=== PATIENT | female | born 1995 | race Caucasian/White ===

== ENCOUNTER 2021-06-01 15:12 | Outpatient (CLI) | payer OTHER, SELFPAY ==
[~2021-06-01] VITALS: Ht 162.6 cm; Wt 87.5 kg
[2021-06-01 15:39] VITALS: BP 131/67
[2021-06-01 15:58] VITALS: BP 123/80
[2021-06-01] MEDS ORDERED: ACET-907 PO (16:01)
[2021-06-01 16:09] VITALS: BP 123/75
[2021-06-01] MEDS ORDERED: HOME MED LIST COMPLETE! XX SCH (16:20)
[2021-06-01 16:27] LABS: ALT/SGPT 14 U/L (12-78); BILIRUBIN,TOTAL 0.2 MG/DL (0.2-1.0); CREATININE FOR GFR 0.55 MG/DL (0.55-1.30); GLOMERULAR FILTRATION RATE > 60.0 (>60); LDH LACTATE DEHYDROGENASE 172 U/L (84-246); URIC ACID 3.9 MG/DL (2.6-6.0)
[2021-06-01 16:41] LABS: HEMATOCRIT 36.1 % (36.0-47.0); HEMOGLOBIN 11.3 g/dl (12.0-15.5); MEAN CORPUSCULAR HEMOGLOBIN 25.7 pg (27.0-33.0); MEAN CORPUSCULAR HGB CONC 31.3 g/dl (32.0-36.5); MEAN CORPUSCULAR VOLUME 82.2 fl (80.0-96.0); PLATELET COUNT, AUTOMATED 159 10^3/uL (150-450); RED BLOOD COUNT 4.39 10^6/uL (4.00-5.40)
[2021-06-01 16:51] LABS: TOTAL PROTEIN,RANDOM URINE 7.8 MG/DL (0.0-12.0)
--- NOTE | 2021-06-01 16:57 | IPNPDOC ---
Text Note Date of Service The patient was seen on 06/01/21. NOTE Chief Complaint: Ms. Wellington is a 25 year old at 37+2 weeks gestation sent to L&D triage from clinic after elevated blood pressure at routine OB appointment. Patient presents: alone HPI: Reports swelling to feet and hands, dizziness occurring yesterday with intermittent spots in vision while out running errands. Intermittent frontal/left headache that is relieved with tylenol. Denies nausea, vomiting, abdominal pain. ROS: Denies any leaking of fluid, vaginal bleeding. Reporting good movement. Denies any contractions. Denies any dysuria, vaginal discharge, vaginal itching/burning. Some Fatigue. Recently arrived from [facility]. Objective: VS: 1539: BP 131/67 P96 RR18 T97.8 1558: BP 123/80 P98 1609: Bp 123/75 P93 General: Alert. Well-appearing, in no acute distress PSYCH: Well groomed. Appropriate affect, normal mood. Conversed easily. Neuro: Oriented to time, place, and person. RESP: Lungs clear to auscultation bilaterally without wheezes, rales or rhonchi. Unlabored breathing. CV: Normal RRR, no murmur, c/w normal . Minimal non-pitting edema to bilateral feet and hands. ABD: Soft, non-tender. BS normal x4 quad. MSK: Normal mvmt all extremities. Steady gait. Tamera from a seated position without assistance. Obstetrical: FHR: Baseline 145 with moderate variability. Accelerations present, no decelerations. No contractions noted. VTX by Leopolds Uterus: Not tender. Fundal Height 36cm. Laboratory Tests 06/01/21 15:51: White Blood Count 8.0, Red Blood Count 4.39, Hemoglobin 11.3L, Hematocrit 36.1, Mean Corpuscular Volume 82.2, Mean Corpuscular Hemoglobin 25.7L, Mean Corpuscular Hemoglobin Concent 31.3L, Red Cell Distribution Width 15.3H, Platelet Count 159, Nucleated Red Blood Cells % (auto) 0.0 06/01/21 15:56: Creatinine 0.55, Glomerular Filtration Rate > 60.0, Uric Acid 3.9, Total Bili mcdaniel 0.2, Aspartate Amino Transf (AST/SGOT) 11, Alanine Aminotransferase (ALT/SGPT) 14, Lactate Dehydrogenase 172 06/01/21 16:13: Urine Random Creatinine 52.0, Urine Random Total Protein 7.8 A/P 25yo at 37+2 wks gestation evaluated in L&D triage for elevated blood pressure in clinic. Benign physical exam Reactive NST, reassuring Labs: normal H/H, platelets, & LFT. P:C ratio 0.15 Elevated blood pressure without diagnosis of hypertension: VSS and normal. Single elevated blood pressure in clinic. Plan: Pt to return to clinic for walk in blood pressure check on Sunday (patient unable to come to clinic on ). Reviewed warning signs of pre-e and to return/call sooner if they occur. Follow up in clinic for next BARAK in 1 week. VS,Fishbone, I+O VS, Fishbone, I+O Vital Signs Date Time Temp Pulse Resp B/P (MAP) Pulse Ox O2 Delivery O2 Flow Rate FiO2 06/01/21 15:58 98 18 123/80 (94) 06/01/21 15:39 97.8 97 ERINN DUFF CNM Jun 01, 2021 16:30
== END 2021-06-01 16:57 | disposition home or self-care (01) ==
LOC: M LDO 15:12
PROVIDERS: ATTEND Advanced Practice Midwife
DX: O26.893 Other specified pregnancy related conditions, third trimester (principal); Z3A.37 37 weeks gestation of pregnancy; R03.0 Elevated blood-pressure reading, without diagnosis of hypertension; Z88.1 Allergy status to other antibiotic agents; Z88.8 Allergy status to other drugs, medicaments and biological substances; Z91.040 Latex allergy status
CPT/HCPCS: 36415; 59025; 82247; 82565; 82570; 83615; 84156; 84450; 84460; 84550; 85027; G0378; G0463

== ENCOUNTER 2021-06-14 20:36 | Inpatient (IN) | payer OTHER, SELFPAY ==
[~2021-06-14] VITALS: Ht 157.5 cm; Wt 89.0 kg
[~2021-06-14 20:36] MED LIST: ACET-907 PO
[2021-06-14 21:33] VITALS: BP 121/75
[2021-06-14] MEDS ORDERED: LACTATED RINGER'S 1000 ML IV ONE (22:30)
[2021-06-14] MEDS ORDERED: OXYTOCIN INJ 10 UNITS/ML VIAL (J2590) IV PRN (22:30)
[2021-06-14] MEDS ORDERED: METHYLERGONOVINE MALEATE 0.2 MG/ML VIAL (J2210) IM PRN (22:30)
[2021-06-14] MEDS ORDERED: miSOPROStol 50MCG 1/2 TABLET PO ONE (22:30)
[2021-06-14] MEDS ORDERED: OXYTOCIN DRIP 30 UNITS in IV 1 EA IV PRN (22:30)
[2021-06-14] MEDS ORDERED: OXYTOCIN 30 UNITS IN 0.9% NaCl 500ML IV BAG (J2590) As Ordered ONE (23:08)
[2021-06-14 23:10] LABS: HEMATOCRIT 34.2 % (36.0-47.0); HEMOGLOBIN 10.9 g/dl (12.0-15.5); MEAN CORPUSCULAR HEMOGLOBIN 25.9 pg (27.0-33.0); MEAN CORPUSCULAR HGB CONC 31.9 g/dl (32.0-36.5); MEAN CORPUSCULAR VOLUME 81.2 fl (80.0-96.0); PLATELET COUNT, AUTOMATED 154 10^3/uL (150-450); RED BLOOD COUNT 4.21 10^6/uL (4.00-5.40); WHITE BLOOD COUNT 7.8 10^3/uL (4.0-10.0)
--- NOTE | 2021-06-14 23:33 | HPEPDOC ---
Obstetrical History & Physical General Date of Admission Vital Signs Label Value Date Time Patient Temperature 98.3 degrees F 06/14/212132 Temperature Source Tympanic 06/14/212132 Pulse 100 06/14/212132 Respiratory Rate 18 bpm 06/14/212132 Blood Pressure Assessment 121/75 (90) 06/14/212132 Source Automatic Cuff (NIBP) Item Value Date Time White Blood Count 7.8 10^3/uL 06/14/212135 Red Blood Count 4.21 10^6/uL 06/14/212135 Hemoglobin 10.9 g/dl L 06/14/212135 Hematocrit 34.2 % L 06/14/212135 Mean Corpuscular Volume 81.2 fl 06/14/212135 Mean Corpuscular Hemoglobin 25.9 pg L 06/14/212135 Mean Corpuscular Hemoglobin Concent 31.9 g/dl L 06/14/212135 Red Cell Distribution Width 15.4 % H 06/14/212135 Platelet Count 154 10^3/uL 06/14/212135Jun 14, 2021 at 20:36 Primary Care Physician: Montana Wright MD History of Present Illness 25 YO AT 39 WEEKS FOR IOL PREVIOUS HISTORY PRE-E AND HAD PREVIOUS TOLAC Chief Complaint: Induction of labor Information Provided By: Patient Age: 25 : 3 Term: 2 Pre-term: 0 Abortions: 0 Livin Care Care: Good Care Number of Visits: 5 Dating Final EDC: Jun 20, 2021 Final EDC for Daily Update: Jun 20, 2021 Final EDC by: LMP LMP: Sep 13, 2020 1st Trimester Date: Nov 23, 2020 Weeks + Days: 9.3 Estimated Date of Confinement: Jun 20, 2021 EGA at Admission: 39 Antepartum Course Diagnos(e)s 39 WEEKS FOR IOL Height (inches): 64 Pre- weight (lbs.): 186 Admission Weight (lbs.): 195 Change in Weight (lbs.): 9 Past Medical History Past Obstetrical History #1: Past Obstetrical History: Multigravida Date of Delivery: January 22, 2018 Gestation: 37 Type of Delivery: Ceserean section Sex of : Male Weight of Infant (grams): 3146.7 Complications: Yes (PRE E NRFHT) Past Obstetrical History #2: Past Obstetrical History: Multigravida Date of Delivery: Oct 05, 2020 Gestation: 39 Type of Delivery: Spontaneous Vaginal Del. (TOLAC) Sex of : Male Weight of (grams): 3231.8 Complications: No BULKER History: Abnormal Pap, History of STD (CT POSITIVE 2015) Past Medical History Medical History PATIENT CLAIMS HISTORY HYPERTENSION UTI'S Surgical History: section (DIAGNOSTIC LAPAROSCOPY,RT HIP SURGERY,T AND A ), Diagnostic laparoscopy Family History Significant Family History: Lung disease (LUNG CANCER) Social History Social history NON SMOKER NO ETOH NO VAPING NO RECREATIONAL DRUGS NO VIOLENCE Marital Status: Family situation: Spouse/partner home Psychosocial History: Anxiety (PP DEPRESSION ) * Smoker: non-smoker Alcohol: Denies Drugs: denies Abuse Violence Screening Have you been hit/kicked/slapp: No Have you been sexually assault: No Imunizations Tdap status: current Influenza Status: needs Allergies Coded Allergies: cephalexin (Verified Allergy, Intermediate, Swelling/HIVES, 06/01/21) clindamycin (Verified Allergy, Intermediate, Swelling/HIVES, 06/01/21) dinoprostone (Verified Allergy, Intermediate, Swelling/HIVES, 06/01/21) latex (Verified Allergy, Intermediate, Swelling/HIVES, 06/01/21) omeprazole (Verified Allergy, Intermediate, Swelling/HIVES, 06/01/21) Medications Scheduled PRN Acetaminophen (Tylenol) 325 Mg Tablet, 1,000 MG PO Q6HP PRN for HEADACHE Physical Examination Physical Examination GENERAL: Alert and oriented times three. BREAST: . ABDOMEN: Gravid and non-tender to touch. FETUS: Is vertex (VTX) by sterile vaginal examination (SVE), fetus is vertex (VTX) by Sajan. HEART RATE: Regular rate and rhythm. LUNGS: Clear to auscultation (CTA). EXTREMITIES: No edema. No clonus. Deep tendon reflexes (DTRs) + . Other physical findings NORMOCEPHALIC ,ATRAUMATIC, NECK FULL RANGE MOTION, PERRLA, CHEST HRR DISTAL PULSES SYMMETRIC, LUNGS CTA NO WHEEZE,NO RHONCHI NO CVA TENDERNESS ABDOMEN SOFT SF HEIGHT APPROPRIATE VERTEX BOWEL SOUNDS NORMAL. NO RASHES LESIONS PRURITUS NO ARTHRALGIA MYALGIA, NO JOINT PAIN NO COUGH WHEEZE NO SOB OR [place], NO BRUISING NO BLEEDING NO INCONTINENCE URGENGY FREQUENCY Vital Signs/I&O Vital Signs Date Time Temp Pulse Resp B/P (MAP) Pulse Ox O2 Delivery O2 Flow Rate FiO2 06/14/21 21:33 98.3 100 18 121/75 (90) Room Air Laboratory Data 24H LABS Laboratory Tests 2 06/14/21 20:48: Serology Scanned Report Hepatitis B Testing Pertinent Laboratoy Data Blood Type: A- RBC Antibody Screen: Negative HIV: Negative Hepatitis B: Negative Rapid Plasma Reagin: Nonreactive Rubella: Immune Varicella: Immune Chlamydia/Gonorrhea: Negative Group B Streptococcus: Negative Quad Screen Test: Negative Cystic Fibrosis: Negative Anatomy Ultrasound Ultrasound Date: Nov 23, 2020 Placenta Location: Anterior Normal Anatomy: Yes Placenta Previa: No Steroid Therapy Steroid Therapy: No Vaginal Examination Dilation: 1cm Effacement: 50% Station: -3 Cervical Consistency: Medium Cervical Position: Posterior Presentation: Cephalic presentation Assessment Variability: Moderate Accelerations: Present Decelerations: None Tocometer Contractions: No Assessment/Plan Assessment 25 year-old (G3 para (P)2 at 39 weeks by 9.2 week ultrasound. Presents to Labor and Delivery (L&D) OR IOL AND ATTEMPT TOLAC Plan Admit and orient. Publicity Expert and consent. Diet: ASHLEY Group B Streptococcus (GBS) [negative]. Labs and intravenous (IV) per unit protocol. Counseled on Pitocin and induction of labor (IOL).AND CYTOTEC Lactated Ringers (LR): Bolus 1000 mL, then at 125 mL/hr. Anticipate [normal spontaneous delivery ()]. C-S as appropriate. Labor and Delivery Counseling REVIEWED IOL WITH HISTORY OF PREVIOUS CS INCREASE RISK CS , RUPTURE UTERUS LOSS REMOTE BLOOD TRANSFUSION REMOTE HYSTERECTOMY FOR LIFE THREATENING BLEEDING. USE OF PITOCIN CYTOTEC RISK OF TACHYSYSTOLE NRFHT LEADING TO CS. USE OF FORCEPS OR VACUUM FOR NEED OF IMMEDIATE DELIVERY MAY LEAD TO LACERATIONS BLADDER VAGINA CERVIX RECTUM OR VAGINAL ESPITIA THAT MAY NEED REPAIR Montana Wright MD Jun 14, 2021 23:30
[2021-06-15] VITALS (24 sets, daily range): BP systolic 85–139; BP diastolic 52–100
[2021-06-15] MEDS ORDERED: miSOPROStol 50MCG 1/2 TABLET PO ONE (03:30)
[2021-06-15] MEDS ORDERED: KETOROLAC 30 MG/ML 1ML VIAL IV SCH (03:37)
--- NOTE | 2021-06-15 04:12 | IPNPDOC ---
Text Note Date of Service The patient was seen on 06/15/21. NOTE 06/15/2021 0330 am patient admitted iol and attempting tolac at 39 weeks had 1 dose Cytotec 50 ug Po had occasional contractions category 1 strip 4 hours later no increase contractions ordered a dose Cytotec Po safe to proceed VS,Fishbone, I+O VS, Fishbone, I+O Laboratory Tests 06/14/21 21:36 Vital Signs Date Time Temp Pulse Resp B/P (MAP) Pulse Ox O2 Delivery O2 Flow Rate FiO2 06/14/21 21:33 98.3 100 18 121/75 (90) Room Air Montana Wright MD Jun 15, 2021 04:12
--- NOTE | 2021-06-15 10:01 | IPNPDOC ---
Obstetrical Progress Note Date of Service Jun 15, 2021 Annmarie Wellington is doing well with no complaints. Does not feel contractions much. We reviewed her medical and obstetrical history. Objective Vital Signs Date Time Temp Pulse Resp B/P (MAP) Pulse Ox O2 Delivery O2 Flow Rate FiO2 06/15/21 07:23 97.4 84 18 128/66 (86) 06/14/21 21:33 Room Air Assessment Heart Rate (FHR): 130 Variability: Moderate Accelerations: Positive Decelerations: None Heart Rate Tracing: Category I Tocometer Contractions: Yes Frequency: irregular Sterile Vaginal Examination Dilation: 1cm Effacement (%): 30% Station: -3 Cervical Consistency: Soft Cervical Position: Posterior Postion/Presentation: Cephalic presentation Assessment and Plan Status: Reassuring Group B Streptococcus: Negative Anticipate: Vaginal Delivery Additional Comments Discussed plan of care with patient. Attempted mazariegos bulb placement (RN mushroom cutter). Unable to place due to posterior position of cervix. Will begin pitocin induction. Routine intrapartum care. QING SERRATO DO Jun 15, 2021 10:01
[2021-06-15] MEDS ORDERED: OXYTOCIN DRIP 30 UNITS in IV 1 EA IV SCH ×2 (10:30→22:20)
[2021-06-15] MEDS: LR 1,000 ML IV SCH ×3 (10:41→14:48)
--- NOTE | 2021-06-15 17:07 | IPNPDOC ---
Obstetrical Progress Note Date of Service Jun 15, 2021 Subjective Patient walking around room, feels comfortable with contractions. no complaints at this time. Objective Vital Signs Date Time Temp Pulse Resp B/P (MAP) Pulse Ox O2 Delivery O2 Flow Rate FiO2 06/15/21 15:39 81 98/60 (73) 06/15/21 14:05 97.7 06/15/21 11:09 18 06/14/21 21:33 Room Air Assessment Heart Rate (FHR): 150 Variability: Moderate Accelerations: Positive Decelerations: None Heart Rate Tracing: Category I Tocometer Contractions: Yes Frequency: every 2-5 min. Sterile Vaginal Examination Dilation: 3 cm Effacement (%): 30% Station: -3 Cervical Consistency: Soft Cervical Position: Posterior Postion/Presentation: Cephalic presentation Assessment and Plan Status: Reassuring Group B Streptococcus: Negative Anticipate: Vaginal Delivery Additional Comments rn nutritionists cervical exam as above. progress to 3cm, continue pitocin. Discussed plan o fcare with patient; will p shayna on rupture of membranes when feasible. patient plans on epidural if needed. routine intrapartum care, reevaluate labor progress in 4-6 hours or sooner if needed. QING SERRATO DO Jun 15, 2021 17:07
[2021-06-15] MEDS ORDERED: ACETAMINOPHEN 500 MG TAB PO ONE (18:50)
[2021-06-15] MEDS ORDERED: FENTANYL 2MCG/ML ROPIVACAINE 0.2% IN 0.9% NACL 100ML IVBAG As Ordered ONE (19:50)
[2021-06-15] MEDS ORDERED: ceFAZolin 2 GM/D5W 50 ML IV BAG (J0690 PER 500MG) As Ordered ONE (20:20)
--- NOTE | 2021-06-15 20:59 | IPNPDOC ---
Obstetrical Progress Note Date of Service Jun 15, 2021 Subjective Patient is complaining of greatly increased contraction pain along the incision line. This does not feel like her previous labor. Otherwise she has no complaints. Objective Vital Signs Date Time Temp Pulse Resp B/P (MAP) Pulse Ox O2 Delivery O2 Flow Rate FiO2 06/15/21 18:36 92 129/66 (87) 06/15/21 17:57 97.6 06/15/21 16:05 18 06/14/21 21:33 Room Air Assessment Heart Rate (FHR): 150 Variability: Moderate Accelerations: Positive Decelerations: None Heart Rate Tracing: Category I Tocometer Contractions: Yes Frequency: every 2-5 min. Sterile Vaginal Examination Dilation: 3 cm Assessment and Plan Status: Reassuring Anticipate: Section Additional Comments Discussed with patient that I am very concerned for imminent uterine rupture as she is having increased pain along the incision line. I recommended delivery and described r/b/a to the procedure and highlited risks including infection, bleeding, damage to nearby organs, maternal . She agrees with delivery and we are proceeding to the OR. vancomycin prophylaxis due to cephalosporin and clinda mycin hives allergy QING SERRATO DO Jun 15, 2021 20:59
[2021-06-15] MEDS ORDERED: VANCOMYCIN HCL 750 MG, VIAL MATE ADAPTER 1 EACH in NS 250 ML IV ONE ×2 (21:00→22:00)
[2021-06-15] MEDS ORDERED: NALBUPHINE HCL 10 MG/ML AMP (J2300) IV PRN (21:08)
[2021-06-15] MEDS ORDERED: METOCLOPRAMIDE INJ 10MG/2ML VIAL (J2765 PER 1) IV PRN (21:08)
[2021-06-15] MEDS ORDERED: ONDANSETRON 4MG/2ML VIAL IV PRN ×2 (21:08→22:20)
[2021-06-15] MEDS ORDERED: NALOXONE INJ 0.4MG/1ML VIAL (J2310 PER 1MG) IV PRN ×2 (21:08)
[2021-06-15] MEDS ORDERED: ONDANSETRON 4MG/2ML VIAL As Ordered ONE (21:11)
[2021-06-15] MEDS ORDERED: MORPHINE PRES-FREE INJ 10 MG/10 ML VIAL (J2274) As Ordered ONE (21:11)
[2021-06-15] MEDS ORDERED: ePHEDrine SULFATE 25 MG/5 ML(5MG/ML) SYRINGE As Ordered ONE (21:11)
[2021-06-15] MEDS ORDERED: OXYTOCIN 30 UNITS IN 0.9% NaCl 500ML IV BAG (J2590) As Ordered ONE ×2 (21:11→22:55)
[2021-06-15] MEDS ORDERED: KETOROLAC 60MG 2ML VIAL As Ordered ONE (21:37)
[2021-06-15] MEDS ORDERED: KETOROLAC 30 MG/ML 1ML VIAL IV PRN (21:38)
[2021-06-15 22:07] LABS: CORD GAS ABE V -6.4; CORD GAS HCO3 V 19.6 MEQ/L; CORD GAS O2 SAT V 57.9 %; CORD GAS PCO2 V 40.7 mmHg; CORD GAS PH V 7.3 UNITS; CORD GAS PO2 V 22.5 mmHg; CORD GAS SBC V 18.4 MEQ/L; CORD GAS TCO2 V 20.8 MEQ/L
[2021-06-15] MEDS ORDERED: MEPERIDINE INJ 25 MG/ML VIAL (J2175) IV PRN (22:10)
[2021-06-15] MEDS ORDERED: fentaNYL 100 MCG/2 ML INJECTION (J3010) IV PRN (22:10)
[2021-06-15] MEDS ORDERED: SIMETHICONE 80MG CHEW TAB PO PRN (22:20)
[2021-06-15] MEDS ORDERED: MORPHINE 2 MG/ML 1ML VIAL (J2270) IV PRN (22:20)
[2021-06-15] MEDS ORDERED: PROMETHAZINE 25 MG TAB PO PRN (22:20)
[2021-06-15] MEDS ORDERED: RHOGAM 300 MCG (1500 IU) INJ (J2790) IM SCH (22:20)
[2021-06-15] MEDS ORDERED: oxyCODONE 5MG TAB PO PRN ×2 (22:20)
[2021-06-15] MEDS ORDERED: DOCUSATE SODIUM 100MG CAPSULE PO PRN (22:20)
[2021-06-15] MEDS ORDERED: LR 1,000 ML IV SCH (22:20)
[2021-06-15] MEDS ORDERED: MEASLES,MUMPS,RUBELLA VACCINE INJ (MMR-II) (90707) SC SCH (22:20)
--- NOTE | 2021-06-15 22:42 | ROOPDOC ---
[facility] Report Of Operation Report of Operation DATE OF PROCEDURE: 06/15/21 PREPROCEDURE DIAGNOSES: impending uterine rupture POSTPROCEDURE DIAGNOSES: status post repeat low transverse delivery PROCEDURE PERFORMED: repeat low transverse delivery SURGEON: Qing Zarco DO PROPELLANT [employer]GE ZONE ASSEMBLER: Liz Herrera CNM whose assistance with retraction and delivery of the were essential to completion of the case. ANESTHESIA: spinal. ESTIMATED BLOOD LOSS: Approximately 600 mL. COMPLICATIONS: none. FINDINGS: live male , 6lbs 11oz, apgars 8/9. Very thin lower uterine segment noted prior to incision. Otherwise normal appearing uterus, tubes and ovaries SPECIMENS REMOVED: none DESCRIPTION OF PROCEDURE: After obtaining informed consent, the patient was brought to the operating suite and prepped/draped in the usual manner. A timeout was called and the patient name, date of and procedure to be performed were verified. A transverse skin incision was made with the scalpel and this was carried down to the fascia which was then scored. The fascial incision was extended laterally with the rendon scissors. The fascia was dissected from the rectus muscles sharply and bluntly both superiorly and inferiorly. The rectus muscles were and the peritoneum entered bluntly. This was extended with traction. A bladder flap was created. The uterus was incised with the scalpel then entered bluntly with clear fluid noted. The head was elevated to the level of the incision and delivered easily with fundal pressure followed by the corpus. The cord was clamped and cut. The was handed off the field. Cord gases were obtained. The placenta delivered spontaneously and intact. The uterus was exteriorized and the interior wiped with a laparotomy sponge. The hysterotomy was closed with 0- vicryl in running locking fashion. The posterior culdesac was irrigated. The uterus was returned to the abdomen. Thehysterotomy was noted to be hemostatic. there was oozing in the area of the bladder flap and arrista was applied with hemostasis noted. The fascia was closed with 0-vicryl. The subcutaneous layer was irrigated then closed with 3-0 vicryl. The skin was closed with 4-0 monocryl. An optifoam dressing was applied. The vagina was cleared of all clots. Mother and baby were left in good condition en route to the PACU. QING ZARCO DO Jun 15, 2021 22:42
[2021-06-15] MEDS: ACETAMINOPHEN 500 MG TAB PO SCH (23:06)
[2021-06-16] VITALS (11 sets, daily range): BP systolic 106–136; BP diastolic 51–67
[2021-06-16] MEDS: diphenhydrAMINE 50MG/ML VIAL (J1200) IV PRN ×2 (01:59→05:57)
[2021-06-16] MEDS: KETOROLAC 30 MG/ML 1ML VIAL IV SCH ×3 (03:14→16:04)
[2021-06-16] MEDS: ACETAMINOPHEN 500 MG TAB PO SCH ×4 (04:23→22:28)
--- NOTE | 2021-06-16 06:39 | IPNPDOC ---
Progress Note Date of Service: Jun 16, 2021 Day#: 1 Progress Note SUBJECT: Fiona Wellington is a 25-year-old 3 now Para 3003 status post u ncomplicated repeat low transverse delivery for impending uterine rupture at 39+0 weeks' at approximately 2133 hours on [id number] of a male 6 pounds 11 ounces doing well day # 1. She has not yet ambulated, has mazariegos in place and tolerating regular diet. Breast feeding without issue. Reports lochia is small. OBJECTIVE: VITAL SIGNS: Within normal limits, afebrile. Alert and oriented times three. Breath sounds clear to auscultation. Heart rate: Regular rate and rhythm, no murmurs, rubs or gallops. Abdomen: Fundus firm at U-2. Soft, appropriately tender postoperatively, positive bowel sounds. Incision covered with Optifoam with no strikethrough. ASSESSMENT: as above doing well on day 1. Vitals within normal limits, afebrile, hemodynamically stable with no evidence of infection. PLAN: - remove mazariegos, meet due to void, ambulate - Tylenol and Motrin scheduled for pain; oxycodone for breakthrough - Encourage breast feeding and ambulation. - desires salpingectomy, can be scheduled at 6 week visit.. - Routine PP visit in 2 and 6 weeks in clinic. - likely discharge tomorrow VS, I&O, 24H, Fishbone Vital Signs/I&O Vital Signs Date Time Temp Pulse Resp B/P (MAP) Pulse Ox O2 Delivery O2 Flow Rate FiO2 06/16/21 06:00 97.8 103 20 108/51 (70) 98 Room Air I&O- Last 24 Hours up to 6 AM 06/16/21 06:00 Intake Total 2550 ml Output Total 2150 ml Balance 400 ml Laboratory Data 24H LABS Laboratory Tests 2 06/15/21 21:33: Cord Venous Blood pH 7.300, Cord Venous Blood PCO2 40.7, Cord Venous Blood PO2 22.5, Cord Venous Blood HCO3 19.6, Cord Venous Blood Total CO2 20.8, Cord Venous Base Excess (Actual) -6.4, Cord Venous Base Excess (Standard) 18.4, Cord Venous Blood Oxygen Saturation 57.9 QING SERRATO DO Jun 16, 2021 06:39
[2021-06-16 08:01] LABS: HEMATOCRIT 30.8 % (36.0-47.0); HEMOGLOBIN 9.5 g/dl (12.0-15.5); MEAN CORPUSCULAR HEMOGLOBIN 25.9 pg (27.0-33.0); MEAN CORPUSCULAR HGB CONC 30.8 g/dl (32.0-36.5); MEAN CORPUSCULAR VOLUME 83.9 fl (80.0-96.0); PLATELET COUNT, AUTOMATED 112 10^3/uL (150-450); RED BLOOD COUNT 3.67 10^6/uL (4.00-5.40); WHITE BLOOD COUNT 8.7 10^3/uL (4.0-10.0)
[2021-06-16] MEDS: PRENATAL VITAMINS CHEWABLE TABLET PO SCH (09:00)
[2021-06-17] MEDS: IBUPROFEN 800 MG TAB PO SCH ×2 (00:21→07:32)
[2021-06-17 02:00] VITALS: BP 124/73
[2021-06-17] MEDS: ACETAMINOPHEN 500 MG TAB PO SCH ×2 (05:05→10:42)
[2021-06-17 05:57] VITALS: BP 126/68
--- NOTE | 2021-06-17 07:11 | IPNPDOC ---
Progress Note Date of Service: Jun 17, 2021 Day#: 3 Progress Note SUBJECT: Fiona Wellington is a 25-year-old 3 now Para 3003 status post uncomplicated repeat low transverse delivery for impending uterine rupture at 39+0 weeks' at approximately 2133 hours on [id number] of a male 6 pounds 11 ounces doing well day # 3. She has been ambulating, voiding spontaneously without issue and tolerating regular diet. Breast feeding without issue. Reports lochia is less than a normal period]. Patient is ambulating well. [Reports some cramping with . Denies any pain. Voiding and passing flatus without difficulty]. She reports chest pain and difficulty taking a deep breath. OBJECTIVE: VITAL SIGNS: Within normal limits, afebrile. Alert and oriented times three. Breath sounds clear to auscultation. Heart rate: Regular rate and rhythm, no murmurs, rubs or gallops. Abdomen: Fundus firm at U-2. Soft, NTTP. Pfannensteil incision is clean and dry. [Minimal] lochia. LE non-tender, no edema, neg homans ASSESSMENT: Fiona Wellington is a 25-year-old 3 now Para 3003 status post uncomplicated repeat low transverse delivery for impending uterine rupture at 39+0 weeks' at approximately 2133 hours on [id number] of a male 6 pounds 11 ounces doing well day # 3. She complains of chest pain and difficulty taking a deep breath. Her vital signs are normal and heart and lung sounds are normal. She has no signs of DVT on leg exam. She feels it may be gas pains from her surgery but is not sure. PLAN: 1. ordering work up for chest pain/SOB; CBC, CMP, BNP, EKG, CXR 1. Discharge to home pending evaluation. 2. Tylenol and Motrin for pain. Oxycodone for breakthrough. 3. Encourage breast feeding and ambulation. 4. Vasectomy planned. 5. Routine PP visit in 2 and 6 weeks in clinic. 6. Discussed return precautions at length. 7. She is Rh negative and rhogam has been given. VS, I&O, 24H, Fishbone Vital Signs/I&O Vital Signs Date Time Temp Pulse Resp B/P (MAP) Pulse Ox O2 Delivery O2 Flow Rate FiO2 06/17/21 05:57 97.5 99 17 126/68 (87) 99 Room Air I&O- Last 24 Hours up to 6 AM 06/17/21 06:00 Output Total 400 ml Balance -400 ml Laboratory Data 24H LABS Laboratory Tests 2 06/16/21 07:31: Nucleated Red Blood Cells % (auto) 0.0 CBC/BMP Laboratory Tests 06/16/21 07:31 YODIT MOSQUEDA DO Jun 17, 2021 07:11
[2021-06-17 07:45] LABS: HEMATOCRIT 28.9 % (36.0-47.0); HEMOGLOBIN 8.8 g/dl (12.0-15.5); MEAN CORPUSCULAR HEMOGLOBIN 25.6 pg (27.0-33.0); MEAN CORPUSCULAR HGB CONC 30.4 g/dl (32.0-36.5); PLATELET COUNT, AUTOMATED 109 10^3/uL (150-450); RED BLOOD COUNT 3.44 10^6/uL (4.00-5.40); WHITE BLOOD COUNT 5.9 10^3/uL (4.0-10.0)
--- NOTE | 2021-06-17 08:02 | REP ---
INDICATION: patient from with chest pain and SOB. COMPARISON: No comparison chest x-ray. TECHNIQUE: Two views.. FINDINGS: The lungs are well inflated and free of infiltrate. The pleural angles are sharp. The heart size is normal. Pulmonary vasculature is not increased. No significant bony abnormality is seen. There is a small sliver of postoperative free air under the right hemidiaphragm. IMPRESSION: A small sliver of postoperative free air is seen under the right hemidiaphragm. Otherwise normal chest x-ray. <Electronically signed by Reji Montana > 06/17/21 [id number]
[2021-06-17 08:13] LABS: ALBUMIN 1.8 GM/DL (3.2-5.2); ALT/SGPT 14 U/L (12-78); BILIRUBIN,TOTAL 0.1 MG/DL (0.2-1.0); BLOOD UREA NITROGEN 5 MG/DL (7-18); CARBON DIOXIDE LEVEL 25 MEQ/L (21-32); CHLORIDE LEVEL 111 MEQ/L (98-107); CREATININE FOR GFR 0.47 MG/DL (0.55-1.30); GLOMERULAR FILTRATION RATE > 60.0 (>60); GLUCOSE, FASTING 75 MG/DL (70-100); NT-PRO BNP 82 PG/ML (<125); POTASSIUM SERUM 3.7 MEQ/L (3.5-5.1); SODIUM LEVEL 142 MEQ/L (136-145); TOTAL PROTEIN 4.9 GM/DL (6.4-8.2)
[2021-06-17] MEDS: PRENATAL VITAMINS CHEWABLE TABLET PO SCH (08:30)
--- NOTE | 2021-06-17 09:42 | OBDS ---
[facility] Obstetrical Discharge Sum. A/P, Post Course List any complications 25-year-old 3 now Para 3003 status post uncomplicated repeat low transverse delivery for impending uterine rupture at 39+0 weeks' at approximately 2133 hours on [id number] of a male 6 pounds 11 ounces doing well day # 3. She complains of chest pain and difficulty taking a deep breath S/P work up with CBC that is stable, normal CMP and BNP, Normal chest x-ray and EKG. pain in radiating to the right shoulder so likely due to trapped air under the diaphragmm, improving with simethicone and ambulation. patient wants to go home today. . PLAN: 1. Discharge to home 2. Tylenol and Motrin for pain. Oxycodone for breakthrough. 3. Encourage breast feeding and ambulation. 4. Vasectomy planned. 5. Routine PP visit in 2 and 6 weeks in clinic. and return on Sunday for PB check for GTH and HX of pree in prior . 6. Discussed return precautions at length. 7. She is Rh negative and rhogam has been given. MARIELENA MAHMOOD MD Jun 17, 2021 09:42
[2021-06-17] MEDS ORDERED: MI-A80CH PO (09:47)
[2021-06-17 10:00] VITALS: BP 133/69
--- NOTE | 2021-06-18 10:59 | ECGEPIP ---
[facility] Test Date: 2021-06-17 Pat Name: ANG ARCHER Department: Room: [place] [address] Gender: Female Sas Etl Developer: SALVADOR : 1995 Requested By: YODIT Burr Order Number: [id number] Reading MD: Zachariah Almendarez Measurements Intervals [place] Rate: 71 P: 33 WY: 134 QRS: 36 QRSD: 80 T: 5 QT: 390 QTc: 423 Interpretive Statements Normal sinus rhythm with sinus arrhythmia, Poor R wave progression. No prior ECG available for comparison at the time of interpretation. Electronically Signed on 06-18-2021 10:58:47 EDT by Zachariah Almendarez
== END 2021-06-17 11:50 | disposition home or self-care (01) | DRG 773 ==
LOC: M LDI 20:36 → M OBS 06-16
PROVIDERS: ADMIT Obstetrics & Gynecology; ATTEND Obstetrics & Gynecology
PROC: 3E0P7GC Introduction of Other Therapeutic Substance into Female Reproductive, Via Natural or Artificial Opening (ICD-10-PCS; 2021-06-14)
PROC: 10D00Z1 Extraction of Products of Conception, Low, Open Approach (ICD-10-PCS; principal; 2021-06-15 20:38)
DX: O34.211 Maternal care for low transverse scar from previous cesarean delivery (principal); Z37.0 Single live birth; Z3A.39 39 weeks gestation of pregnancy

== ENCOUNTER 2022-11-21 20:48 | Emergency (ER) | payer OTHER ==
[~2022-11-21] VITALS: Ht 162.6 cm; Wt 73.0 kg
[~2022-11-21 20:48] MED LIST changes: +MI-A80CH PO
[2022-11-21 22:41] LABS: APPEARANCE, URINE HAZY (CLEAR); BACTERIA, URINE AUTO NEGATIVE (NEGATIVE); BILIRUBIN, URINE AUTO NEGATIVE (NEGATIVE); BLOOD, URINE BLOOD 1+ (NEGATIVE); COLOR, URINE YELLOW (YELLOW); GLUCOSE, URINE (UA) AUTO NEGATIVE (NEGATIVE); KETONE, URINE AUTO 1+ mg/dL (NEGATIVE); LEUKOCYTE ESTERASE, URINE AUTO NEGATIVE (NEGATIVE); MUCUS, URINE MODERATE (NEGATIVE); NITRITE, URINE AUTO NEGATIVE (NEGATIVE); PROTEIN, URINE AUTO NEGATIVE (NEGATIVE); RBC, URINE AUTO 1 /HPF (0-3); SPECIFIC GRAVITY URINE AUTO 1.026 (1.002-1.035); SQUAMOUS EPITHELIAL CELL UR AU 10 /HPF (0-6); UROBILINOGEN, URINE AUTO 0.2 mg/dL (0.0-2.0); WBC, URINE AUTO 0 /HPF (0-3)
[2022-11-21 23:57] LABS: GC DNA AMPLIFICATION NEGATIVE (NEGATIVE)
[2022-11-22 00:43] LABS: BASO # 0.1 10^3/uL (0.0-0.2); BASO % 0.6 % (0.0-1.0); EOS # 0.1 10^3/uL (0.0-0.5); EOS % 0.5 % (0.0-3.0); HEMATOCRIT 41.4 % (36.0-47.0); HEMOGLOBIN 13.9 g/dl (12.0-15.5); LYMPH # 1.9 10^3/uL (1.5-5.0); LYMPH % 18.8 % (24.0-44.0); MEAN CORPUSCULAR HEMOGLOBIN 30.2 pg (27.0-33.0); MEAN CORPUSCULAR HGB CONC 33.6 g/dl (32.0-36.5); MONO # 0.6 10^3/uL (0.0-0.8); MONO % 6.2 % (2.0-8.0); NEUTROPHILS # 7.5 10^3/uL (1.5-8.5); NEUTROPHILS % 73.1 % (36.0-66.0); PLATELET COUNT, AUTOMATED 194 10^3/uL (150-450); WHITE BLOOD COUNT 10.2 10^3/uL (4.0-10.0)
[2022-11-22] MEDS ORDERED: TRAN1DIS4 TOP (02:02)
[2022-11-22 02:10] VITALS: BP 118/62
== END 2022-11-22 02:17 | disposition home or self-care (01) ==
LOC: M ED 20:48
DX: O20.0 Threatened abortion (principal); Z3A.01 Less than 8 weeks gestation of pregnancy; Z88.1 Allergy status to other antibiotic agents; Z88.8 Allergy status to other drugs, medicaments and biological substances; Z91.040 Latex allergy status

== ENCOUNTER → 2022-11-24 | Outpatient (CLI) | payer OTHER ==
[~2022-11-24] MED LIST changes: +TRAN1DIS4 TOP
== END ==
LOC: M LAB 14:08
PROVIDERS: ATTEND Internal Medicine
DX: Z36.89 Encounter for other specified antenatal screening (principal)

== ENCOUNTER 2022-11-30 18:40 | Observation (INO) | payer OTHER ==
[~2022-11-30] VITALS: Ht 162.6 cm; Wt 70.8 kg
[2022-11-30] MEDS ORDERED: PROMETHAZINE 25MG/ML 1ML VIAL IV PRN (20:05)
[2022-11-30 20:15] VITALS: BP 116/60
[2022-11-30] MEDS ORDERED: ACETAMINOPHEN TAB 650MG DOSE (2X325MG) PO PRN (20:45)
[2022-11-30 21:08] LABS: HEMATOCRIT 35.2 % (36.0-47.0); HEMOGLOBIN 12.3 g/dl (12.0-15.5); MEAN CORPUSCULAR HEMOGLOBIN 30.7 pg (27.0-33.0); MEAN CORPUSCULAR HGB CONC 34.9 g/dl (32.0-36.5); MEAN CORPUSCULAR VOLUME 87.8 fl (80.0-96.0); PLATELET COUNT, AUTOMATED 162 10^3/uL (150-450); RED BLOOD COUNT 4.01 10^6/uL (4.00-5.40); WHITE BLOOD COUNT 7.6 10^3/uL (4.0-10.0)
[2022-11-30] MEDS ORDERED: ACET-907 PO (21:29)
[2022-11-30] MEDS ORDERED: PROM25SU3 PR (21:39)
[2022-11-30] MEDS: NS 1,000 ML IV SCH (21:40)
[2022-11-30] MEDS ORDERED: HOME MED LIST COMPLETE! XX SCH (21:40)
[2022-11-30] MEDS: FAMOTIDINE 20 MG TAB PO SCH (21:41)
[2022-11-30 21:47] LABS: ALBUMIN 3.5 G/DL (3.2-5.2); ALKALINE PHOSPHATASE 76 U/L (46-116); ALT/SGPT 19 U/L (7.0-40); AST/SGOT 12 U/L (<34); BILIRUBIN,TOTAL 0.4 MG/DL (0.3-1.2); BLOOD UREA NITROGEN 8 MG/DL (9-23); CALCIUM LEVEL 8.7 MG/DL (8.5-10.1); CARBON DIOXIDE LEVEL 24 MMOL/L (20-31); CHLORIDE LEVEL 107 MMOL/L (98-107); CREATININE FOR GFR 0.59 MG/DL (0.55-1.30); GLOMERULAR FILTRATION RATE > 60.0 (>60); GLUCOSE, FASTING 97 MG/DL (60-100); POTASSIUM SERUM 3.4 MMOL/L (3.5-5.1); SODIUM LEVEL 138 MMOL/L (136-145); TOTAL PROTEIN 6.5 G/DL (5.7-8.2)
[2022-11-30] MEDS ORDERED: MULTIVITAMIN -ADULT INJECTION 10 ML, THIAMINE INJection 100 MG, FOLIC ACID 1 MG in NS 1... IV ONE (22:00)
[2022-12-01] VITALS: BP 115/54
[2022-12-01] MEDS: ONDANSETRON 4MG 2ML VIAL IV PRN ×3 (00:02→14:44)
[2022-12-01 00:45] LABS: APPEARANCE, URINE CLEAR (CLEAR); BACTERIA, URINE AUTO NEGATIVE (NEGATIVE); BILIRUBIN, URINE AUTO NEGATIVE (NEGATIVE); BLOOD, URINE BLOOD NEGATIVE (NEGATIVE); COLOR, URINE YELLOW (YELLOW); GLUCOSE, URINE (UA) AUTO NEGATIVE (NEGATIVE); KETONE, URINE AUTO 1+ mg/dL (NEGATIVE); LEUKOCYTE ESTERASE, URINE AUTO NEGATIVE (NEGATIVE); MUCUS, URINE SMALL (NEGATIVE); NITRITE, URINE AUTO NEGATIVE (NEGATIVE); PROTEIN, URINE AUTO NEGATIVE (NEGATIVE); RBC, URINE AUTO 2 /HPF (0-3); SPECIFIC GRAVITY URINE AUTO 1.013 (1.002-1.035); SQUAMOUS EPITHELIAL CELL UR AU 1 /HPF (0-6); WBC, URINE AUTO 2 /HPF (0-3)
[2022-12-01] MEDS: NS 1,000 ML IV SCH ×4 (01:15→17:16)
[2022-12-01 04:00] VITALS: BP 104/56
[2022-12-01 08:00] VITALS: BP 97/54
[2022-12-01] MEDS: FAMOTIDINE 20 MG TAB PO SCH (08:20)
[2022-12-01] MEDS ORDERED: PSEUDOEPHEDRINE 30 MG TAB PO PRN (10:25)
[2022-12-01 11:39] VITALS: BP 110/55
[2022-12-01 16:00] VITALS: BP 106/53
== END 2022-12-01 18:10 | disposition home or self-care (01) ==
LOC: M PED 20:15
PROVIDERS: ADMIT Obstetrics & Gynecology; ATTEND Obstetrics & Gynecology
DX: O21.1 Hyperemesis gravidarum with metabolic disturbance (principal); Z3A.01 Less than 8 weeks gestation of pregnancy; Z79.899 Other long term (current) drug therapy; Z88.1 Allergy status to other antibiotic agents; Z91.040 Latex allergy status; Z88.8 Allergy status to other drugs, medicaments and biological substances
CPT/HCPCS: 80053; 81001; 83735; 85027; 87086; 87635; 96361; 96374; 96375; 96376; J2405; J2550; J3411